=== PATIENT | male | born 1975 | race Two or more races ===

== ENCOUNTER 2022-06-19 16:38 | Inpatient (IN) | payer MEDICAID, OTHER ==
[~2022-06-19] VITALS: Ht 165.1 cm; Wt 123.4 kg
[2022-06-19 18:34] LABS: Basophils # (auto) 0.1 10 ^3/uL (0-0.2); Basophils % (auto) 1.2 % (0.0-2.0); Eosinophils # (auto) 0 10 ^3/uL (0-0.8); Eosinophils % (auto) 0.2 % (0.0-7.0); Hematocrit 43.9 % (41.0-53.0); Hemoglobin 14.9 g/dL (13.5-17.5); Lymphocytes # (auto) 2.4 10 ^3/uL (0.4-5.4); Lymphocytes % (auto) 18.6 % (10.0-50.0); Mean Corpuscular Hemoglobin 31.3 pg (28.0-32.0); Mean Corpuscular Volume 91.9 fL (80.0-100.0); Monocytes % (auto) 7.8 % (0.0-12.0); Neutrophils # (auto) 9.2 10 ^3/uL (1.6-8.6); Neutrophils % (auto) 72.2 % (37.0-80.0); Nucleated Red Blood Cells % 0.1 %; Red Blood Cells 4.77 10^6/uL (4.5-5.90); Red Cell Distribution Width 12.9 % (11.8-14.3); White Blood Cell 12.7 10^3/uL (4.4-10.8)
[2022-06-19 18:51] LABS: INR 1.05 (0.9-1.15); Partial Thromboplastin Time 27.3 sec (24.6-33.4)
[2022-06-19 18:54] LABS: Albumin 4.1 g/dL (3.4-5.0); Anion Gap 11 (5-15); Blood Urea Nitrogen 11 mg/dL (7-18); Calcium 9.9 mg/dL (8.5-10.1); Carbon Dioxide 27 mmol/L (21-32); Chloride 102 mmol/L (98-107); Glucose 156 mg/dL (74-106); Magnesium 2.1 mg/dL (1.6-2.6); Potassium 3.8 mmol/L (3.5-5.1); Sodium 140 mmol/L (136-145)
[2022-06-19 18:56] LABS: Alanine Aminotransferase 37 U/L (16-61); Aspartate Aminotransferase 45 U/L (15-37); BUN/Creatinine Ratio 11.5; Blood Alcohol < 3.0 mg/dL (0-5); GFR African American 108 mL/min; GFR Non-African American 90 mL/min
[2022-06-19 18:57] LABS: Alkaline Phosphatase 103 U/L (45-117); Total Protein 8.3 g/dL (6.4-8.2)
[2022-06-19] MEDS ORDERED: LORazepam 2MG/ML-1ML VIAL IM ONE (19:45)
[2022-06-19 21:52] LABS: Urine Bacteria NONE SEEN /hpf (None Seen); Urine Blood Negative /uL (Negative); Urine Specific Gravity 1.025 (1.001-1.035); Urine WBC <1 /hpf (0 - 3)
[2022-06-19 22:12] LABS: Amphetamine Screen, Urine NEGATIVE (NEGATIVE); Barbiturate Scree,Urine NEGATIVE (NEGATIVE); Benzodiazephine Screen, Urine NEGATIVE (NEGATIVE); Cannabinoid Screen, Urine NEGATIVE (NEGATIVE); Cocaine Screen, Urine NEGATIVE (NEGATIVE); Opiate Scree,Urine NEGATIVE (NEGATIVE); Phencyclidine Screen, Urine NEGATIVE (NEGATIVE)
[2022-06-19] MEDS ORDERED: LORazepam 2MG/ML-1ML VIAL ONE (23:15)
[2022-06-20] MEDS ORDERED: LORazepam 2MG/ML-1ML VIAL IV ONE (01:00)
[2022-06-20] MEDS ORDERED: ONDANSETRON HCL 4 MG/2 ML VIAL IV PRN (07:00)
[2022-06-20] MEDS ORDERED: MORPHINE SULFATE INJ 2 MG/ml SYRG IV PRN (07:00)
[2022-06-20] MEDS ORDERED: NITROGLYCERIN 0.4 MG SL TAB SL PRN (07:00)
[2022-06-20] MEDS ORDERED: IBUPROFEN 800 MG TAB PO ONE (08:30)
[2022-06-20] MEDS: LISINOPRIL 10 MG TAB PO SCH (10:27)
[2022-06-20] MEDS: PANTOPRAZOLE 40 MG TAB PO SCH (10:27)
[2022-06-20] MEDS ORDERED: FOLIC ACID 1 MG, MULTIPLE VITAMIN 10 ML, MAGNESIUM SULF SDV 50% 8 MEQ, THIAMINE INJ 100... INJ SCH ×5 (12:00)
[2022-06-20] MEDS ORDERED: LORazepam 2MG/ML-1ML VIAL IV SCH (14:00)
[2022-06-20] MEDS ORDERED: LORazepam 0.5 MG TAB PO PRN (14:00)
[2022-06-20] MEDS: FOLIC ACID 1 MG, MULTIPLE VITAMIN 10 ML, MAGNESIUM SULF SDV 50% 8 MEQ, THIAMINE INJ 100... INJ SCH ×5 (15:21)
[2022-06-20] MEDS ORDERED: LORazepam 2MG/ML-1ML VIAL IV PRN (17:15)
[2022-06-20 22:00] VITALS: BP 156/84
[2022-06-21] MEDS: TEMAZEPAM 15 MG CAP PO PRN (03:09)
[2022-06-21 05:00] VITALS: BP 184/106
[2022-06-21 06:11] LABS: Basophils # (auto) 0.1 10 ^3/uL (0-0.2); Basophils % (auto) 1.1 % (0.0-2.0); Eosinophils # (auto) 0.2 10 ^3/uL (0-0.8); Eosinophils % (auto) 2.5 % (0.0-7.0); Hematocrit 38.1 % (41.0-53.0); Hemoglobin 13.3 g/dL (13.5-17.5); Lymphocytes # (auto) 2.5 10 ^3/uL (0.4-5.4); Lymphocytes % (auto) 28.5 % (10.0-50.0); Mean Corpuscular Hemoglobin 32.1 pg (28.0-32.0); Mean Corpuscular Hgb Conc. 34.9 g/dL (32.0-36.0); Mean Corpuscular Volume 91.7 fL (80.0-100.0); Monocytes # (auto) 0.4 10 ^3/uL (0-1.3); Monocytes % (auto) 4.7 % (0.0-12.0); Neutrophils # (auto) 5.5 10 ^3/uL (1.6-8.6); Neutrophils % (auto) 63.2 % (37.0-80.0); Nucleated Red Blood Cells % 0.1 %; Red Blood Cells 4.15 10^6/uL (4.5-5.90); Red Cell Distribution Width 12.4 % (11.8-14.3); White Blood Cell 8.7 10^3/uL (4.4-10.8)
[2022-06-21 06:27] LABS: Albumin 3.3 g/dL (3.4-5.0); Calcium 8.7 mg/dL (8.5-10.1); Potassium 3.5 mmol/L (3.5-5.1)
[2022-06-21 06:35] LABS: Bilirubin, Total 0.9 mg/dL (0.2-1.0)
[2022-06-21 09:10] VITALS: BP 159/93
[2022-06-21 09:11] VITALS: BP 159/93
[2022-06-21 12:45] VITALS: BP 153/89
[2022-06-21 17:00] VITALS: BP 159/92
[2022-06-21] MEDS: LISINOPRIL 10 MG TAB PO SCH (18:25)
[2022-06-21] MEDS: PANTOPRAZOLE 40 MG TAB PO SCH (18:25)
[2022-06-21] MEDS: FOLIC ACID 1 MG, MULTIPLE VITAMIN 10 ML, MAGNESIUM SULF SDV 50% 8 MEQ, THIAMINE INJ 100... INJ SCH ×5 (18:26)
[2022-06-21] MEDS: chlordiazePOXIDE HCL 25 MG CAP PO PRN (18:28)
[2022-06-21] MEDS: KETOROLAC TROMETH 30 MG/ML 1ML VIAL IV PRN (18:28)
[2022-06-21 22:00] VITALS: BP 142/74
[2022-06-22 05:00] VITALS: BP 153/93
[2022-06-22 05:18] LABS: Basophils # (auto) 0.1 10 ^3/uL (0-0.2); Basophils % (auto) 1.3 % (0.0-2.0); Eosinophils # (auto) 0.3 10 ^3/uL (0-0.8); Eosinophils % (auto) 3.3 % (0.0-7.0); Hematocrit 36.5 % (41.0-53.0); Hemoglobin 12.9 g/dL (13.5-17.5); Lymphocytes # (auto) 2.5 10 ^3/uL (0.4-5.4); Lymphocytes % (auto) 28.8 % (10.0-50.0); Mean Corpuscular Hemoglobin 32.3 pg (28.0-32.0); Mean Corpuscular Hgb Conc. 35.4 g/dL (32.0-36.0); Mean Corpuscular Volume 91.2 fL (80.0-100.0); Monocytes # (auto) 0.4 10 ^3/uL (0-1.3); Monocytes % (auto) 4.4 % (0.0-12.0); Neutrophils # (auto) 5.3 10 ^3/uL (1.6-8.6); Neutrophils % (auto) 62.2 % (37.0-80.0); Nucleated Red Blood Cells % 0.1 %; Red Cell Distribution Width 12.6 % (11.8-14.3); White Blood Cell 8.5 10^3/uL (4.4-10.8)
[2022-06-22 05:30] LABS: Albumin 3.2 g/dL (3.4-5.0); Calcium 8.3 mg/dL (8.5-10.1); Potassium 3.8 mmol/L (3.5-5.1)
[2022-06-22 05:34] LABS: BUN/Creatinine Ratio 13.6; Bilirubin, Total 0.8 mg/dL (0.2-1.0); Total Protein 6.8 g/dL (6.4-8.2)
[2022-06-22 08:50] VITALS: BP 145/88
[2022-06-22] MEDS: KETOROLAC TROMETH 30 MG/ML 1ML VIAL IV PRN ×2 (08:57→21:40)
[2022-06-22] MEDS: chlordiazePOXIDE HCL 25 MG CAP PO PRN (09:13)
[2022-06-22] MEDS: PANTOPRAZOLE 40 MG TAB PO SCH (09:13)
[2022-06-22] MEDS: LISINOPRIL 10 MG TAB PO SCH (09:14)
[2022-06-22] MEDS ORDERED: KETOROLAC TROMETH 30 MG/ML 1ML VIAL IV PRN (10:00)
[2022-06-22] MEDS: FOLIC ACID 1 MG, MULTIPLE VITAMIN 10 ML, MAGNESIUM SULF SDV 50% 8 MEQ, THIAMINE INJ 100... INJ SCH ×5 (12:00)
[2022-06-22 13:12] VITALS: BP 145/88
[2022-06-22 17:00] VITALS: BP 138/81
[2022-06-22] MEDS: TEMAZEPAM 15 MG CAP PO PRN (21:40)
[2022-06-22 22:00] VITALS: BP 136/87
[2022-06-23 04:56] VITALS: BP 156/96
[2022-06-23 07:06] LABS: Basophils # (auto) 0.1 10 ^3/uL (0-0.2); Basophils % (auto) 0.7 % (0.0-2.0); Eosinophils # (auto) 0.4 10 ^3/uL (0-0.8); Eosinophils % (auto) 3.4 % (0.0-7.0); Hematocrit 39.6 % (41.0-53.0); Hemoglobin 13.7 g/dL (13.5-17.5); Lymphocytes # (auto) 2.6 10 ^3/uL (0.4-5.4); Lymphocytes % (auto) 23.7 % (10.0-50.0); Mean Corpuscular Hemoglobin 31.2 pg (28.0-32.0); Mean Corpuscular Hgb Conc. 34.5 g/dL (32.0-36.0); Mean Corpuscular Volume 90.5 fL (80.0-100.0); Monocytes # (auto) 0.6 10 ^3/uL (0-1.3); Monocytes % (auto) 5.1 % (0.0-12.0); Neutrophils # (auto) 7.2 10 ^3/uL (1.6-8.6); Neutrophils % (auto) 67.1 % (37.0-80.0); Nucleated Red Blood Cells % 0.1 %; Red Blood Cells 4.38 10^6/uL (4.5-5.90); Red Cell Distribution Width 12.7 % (11.8-14.3); White Blood Cell 10.8 10^3/uL (4.4-10.8)
[2022-06-23 07:24] LABS: Albumin 3.3 g/dL (3.4-5.0); Calcium 8.8 mg/dL (8.5-10.1); Potassium 4.2 mmol/L (3.5-5.1)
[2022-06-23 07:29] LABS: BUN/Creatinine Ratio 15.7; Total Protein 6.8 g/dL (6.4-8.2)
[2022-06-23 09:00] VITALS: BP 137/90
[2022-06-23] MEDS: LISINOPRIL 10 MG TAB PO SCH (10:41)
[2022-06-23] MEDS: PANTOPRAZOLE 40 MG TAB PO SCH (10:41)
[2022-06-23] MEDS: KETOROLAC TROMETH 30 MG/ML 1ML VIAL IV PRN ×2 (10:42→20:54)
[2022-06-23] MEDS: FOLIC ACID 1 MG, MULTIPLE VITAMIN 10 ML, MAGNESIUM SULF SDV 50% 8 MEQ, THIAMINE INJ 100... INJ SCH ×5 (12:00)
[2022-06-23 13:00] VITALS: BP 152/90
[2022-06-23] MEDS: TEMAZEPAM 15 MG CAP PO PRN (20:53)
[2022-06-23 21:53] VITALS: BP 135/86
[2022-06-24 05:10] VITALS: BP 143/86
[2022-06-24 07:00] LABS: Basophils # (auto) 0.1 10 ^3/uL (0-0.2); Basophils % (auto) 0.7 % (0.0-2.0); Eosinophils # (auto) 0.3 10 ^3/uL (0-0.8); Eosinophils % (auto) 2.8 % (0.0-7.0); Hematocrit 40.9 % (41.0-53.0); Hemoglobin 14.1 g/dL (13.5-17.5); Lymphocytes # (auto) 2.7 10 ^3/uL (0.4-5.4); Lymphocytes % (auto) 22.2 % (10.0-50.0); Mean Corpuscular Hemoglobin 31.3 pg (28.0-32.0); Mean Corpuscular Hgb Conc. 34.5 g/dL (32.0-36.0); Mean Corpuscular Volume 90.6 fL (80.0-100.0); Monocytes # (auto) 0.6 10 ^3/uL (0-1.3); Monocytes % (auto) 4.9 % (0.0-12.0); Neutrophils # (auto) 8.3 10 ^3/uL (1.6-8.6); Neutrophils % (auto) 69.4 % (37.0-80.0); Nucleated Red Blood Cells % 0.1 %; Red Blood Cells 4.51 10^6/uL (4.5-5.90); Red Cell Distribution Width 13.1 % (11.8-14.3)
[2022-06-24 07:18] LABS: Albumin 3.5 g/dL (3.4-5.0); BUN/Creatinine Ratio 18.3; Calcium 8.9 mg/dL (8.5-10.1); Potassium 4.3 mmol/L (3.5-5.1)
[2022-06-24 07:22] LABS: Bilirubin, Total 0.9 mg/dL (0.2-1.0)
[2022-06-24 09:00] VITALS: BP 150/96
[2022-06-24] MEDS: PANTOPRAZOLE 40 MG TAB PO SCH (09:52)
[2022-06-24] MEDS: LISINOPRIL 10 MG TAB PO SCH (09:53)
[2022-06-24] MEDS: chlordiazePOXIDE HCL 25 MG CAP PO PRN (09:53)
[2022-06-24 13:00] VITALS: BP 133/73
[2022-06-24] MEDS: FOLIC ACID 1 MG, MULTIPLE VITAMIN 10 ML, MAGNESIUM SULF SDV 50% 8 MEQ, THIAMINE INJ 100... INJ SCH ×5 (13:40)
[2022-06-24 17:00] VITALS: BP 132/85
[2022-06-24 22:00] VITALS: BP 136/92
[2022-06-24] MEDS: TEMAZEPAM 15 MG CAP PO PRN (22:31)
[2022-06-24] MEDS: KETOROLAC TROMETH 30 MG/ML 1ML VIAL IV PRN (22:32)
[2022-06-25 05:00] VITALS: BP 130/87
[2022-06-25 06:23] LABS: Basophils # (auto) 0.1 10 ^3/uL (0-0.2); Basophils % (auto) 0.7 % (0.0-2.0); Eosinophils # (auto) 0.2 10 ^3/uL (0-0.8); Eosinophils % (auto) 2.5 % (0.0-7.0); Hematocrit 41.7 % (41.0-53.0); Hemoglobin 14.3 g/dL (13.5-17.5); Lymphocytes # (auto) 2.4 10 ^3/uL (0.4-5.4); Lymphocytes % (auto) 24.9 % (10.0-50.0); Mean Corpuscular Hemoglobin 31.5 pg (28.0-32.0); Mean Corpuscular Hgb Conc. 34.3 g/dL (32.0-36.0); Mean Corpuscular Volume 91.8 fL (80.0-100.0); Monocytes # (auto) 0.6 10 ^3/uL (0-1.3); Monocytes % (auto) 6.4 % (0.0-12.0); Neutrophils # (auto) 6.4 10 ^3/uL (1.6-8.6); Neutrophils % (auto) 65.5 % (37.0-80.0); Red Blood Cells 4.54 10^6/uL (4.5-5.90); Red Cell Distribution Width 12.8 % (11.8-14.3); White Blood Cell 9.8 10^3/uL (4.4-10.8)
[2022-06-25 09:00] VITALS: BP 148/94
[2022-06-25] MEDS: KETOROLAC TROMETH 30 MG/ML 1ML VIAL IV PRN (09:04)
[2022-06-25 09:32] LABS: Chloride 109 mmol/L (98-107); Potassium 4.4 mmol/L (3.5-5.1); Sodium 141 mmol/L (136-145)
[2022-06-25 09:37] LABS: Alanine Aminotransferase 32 U/L (16-61); Alkaline Phosphatase 78 U/L (45-117); Anion Gap 10 (5-15); Aspartate Aminotransferase 15 U/L (15-37); BUN/Creatinine Ratio 15.4; Bilirubin, Total 0.9 mg/dL (0.2-1.0); Blood Urea Nitrogen 14 mg/dL (7-18); Calcium 8.8 mg/dL (8.5-10.1); Carbon Dioxide 22 mmol/L (21-32); GFR African American 115 mL/min; GFR Non-African American 95 mL/min; Glucose 97 mg/dL (74-106); Total Protein 7.3 g/dL (6.4-8.2)
[2022-06-25 09:38] LABS: Albumin 3.7 g/dL (3.4-5.0)
[2022-06-25] MEDS: LISINOPRIL 10 MG TAB PO SCH (10:54)
[2022-06-25] MEDS: PANTOPRAZOLE 40 MG TAB PO SCH (10:55)
[2022-06-25 13:00] VITALS: BP 120/72
[2022-06-25 13:17] VITALS: BP 120/72
== END 2022-06-25 16:00 | disposition home or self-care (01) | DRG 775 ==
LOC: ER 16:38 → TELE 06-20 06:55 → TELE-WESTW 06-20 16:37
PROVIDERS: ADMIT Nurse Practitioner; ATTEND Internal Medicine Pulmonary Disease
DX: F10.231 Alcohol dependence with withdrawal delirium (principal); L40.50 Arthropathic psoriasis, unspecified; E88.81 Metabolic syndrome and other insulin resistance; F41.9 Anxiety disorder, unspecified; M06.9 Rheumatoid arthritis, unspecified; I10 Essential (primary) hypertension; R74.01 Elevation of levels of liver transaminase levels; E66.9 Obesity, unspecified; E78.5 Hyperlipidemia, unspecified; Z20.822 Contact with and (suspected) exposure to COVID-19; Z89.111 Acquired absence of right hand; Z68.41 Body mass index [BMI] 40.0-44.9, adult
CPT/HCPCS: 36415; 71045; 80053; 80061; 80307; 80320; 81001; 82550; 83036; 83735; 83880; 84443; 84484; 85025; 85610; 85730; 87426; 96365; 96372; 96375; G0378; J1885

== ENCOUNTER 2024-08-23 17:18 | Emergency (ER) | payer MEDICAID, OTHER ==
[~2024-08-23] VITALS: Ht 177.8 cm; Wt 116.0 kg
[2024-08-23 17:31] VITALS: BP 148/97; PULSE 115; RESP 20; TEMP 97.7; O2SAT 97
[2024-08-23] MEDS: KETOROLAC TROMETH 60MG/2ML VIAL IM ONE (17:47)
[2024-08-23] MEDS: HYDROcodone-ACET 10/325MG TAB PO ONE (18:11)
--- NOTE | 2024-08-23 18:34 | ED.PDOC ---
History of Present Illness HPI Comments 49 y/o M, with a Hx of rheumatoid arthritis, presents with c/o generalized body pain, today. Patient is homeless and a poor historian and endorses on developing symptoms after running out of his Humira and Methotrexate, recently, in addition to losing his insurance. He denies having any weakness, numbness, tingling, fever, chills, or other associated symptoms or modifiers at this time. Vital signs were stable. Chief Complaint: Body Pain Time Seen by MD: 17:20 Primary Care Provider: NONE Reviewed Notes: Nurses Notes Allergies: Coded Allergies: No Known Drug Allergy (Verified Allergy, Unknown, 06/20/22) Home Meds No Active Prescriptions or Reported Meds Information Source: Patient Mode of Arrival: Ambulatory Severity: Moderate Timing: Weeks Duration: Since onset Prehospital treatment: None Medication Refill: Ran out of Medication Past Medical History PAST MEDICAL HISTORY: Arthritis Past Medical History (Other): Rheumatoid arthritis Surgical History: Denies all surgeries Family History Family History: Reviewed,noncontributory to illness Social History Smoker: Non-Smoker Alcohol: Heavy Drugs: Marijuana Lives In: Homeless Constitutional: denies: chills, diaphoresis, fatigue, fever, malaise, sweats, weakness, others EENTM: denies: blurred vision, double vision, ear bleeding, ear discharge, ear drainage, ear pain, ear ringing, eye pain, eye redness, hearing loss, mouth pain, mouth swelling, nasal discharge, nose bleeding, nose congestion, nose pain, photophobia, tearing, throat pain, throat swelling, voice changes, others Respiratory: denies: cough, hemoptysis, orthopnea, SOB at rest, shortness of breath, SOB with excertion, stridor, wheezing, others Cardiovascular: denies: chest pain, dizzy spells, diaphoresis, Dyspnea on exertion, edema, irregular heart beat, left arm pain, lightheadedness, palpitations, PND, syncope, others Gastrointestinal: denies: abdomen distended, abdominal pain, blood streaked bowels, constipated, diarrhea, dysphagia, difficulty swallowing, hematemesis, melena, nausea, poor appetite, poor fluid intake, rectal bleeding, rectal pain, vomiting, others Genitourinary: denies: burning, dysuria, flank pain, frequency, hematuria, incontinence, penile discharge, penile sore, pain, testicle pain, testicle swelling, urgency, others Neurological: denies: dizziness, fainting, headache, left sided numbness, left sided weakness, numbness, paresthesia, pre-existing deficit, right sided numbness, right sided weakness, seizure, speech problems, tingling, tremors, weakness, others Musculoskeletal: reports: others (generalized bodypain); denies: back pain, gout, joint pain, joint swelling, muscle pain, muscle stiffness, neck pain Integumetry: denies: bruises, change in color, change in hair/nails, dryness, laceration, lesions, lumps, rash, wounds, others Allergic/Immunocompromised: denies: Difficulty Healing, Frequent Infections, Hives, Itching, others Hematologic/Lymphatic: denies: anemia, blood clots, easy bleeding, easy bruising, swollen glands, others Endocrine: denies: excessive hunger, excessive sweating, excessive thirst, excessive urination, flushing, intolerance to cold, intolerance to heat, unexplained weight gain, unexplained weight loss, others Psychiatric: denies: anxiety, bipolar disorder, depression, hopeless, panic disorder, schizophrenia, sleepless, suicidal, others All Other Systems: Reviewed and Negative (negative unless otherwise stated above or in HPI) Physical Exam General Appearance: Moderate Distress (Due to global body pain concerns.), Obese HEENT: Normal ENT Inspection, Pharynx Normal, TMs Normal Neck: Full Range of Motion, Non-Tender, Normal, Normal Inspection Respiratory: Chest Non-Tender, Lungs Clear, No Accessory Muscle Use, No Respiratory Distress, Normal Breath Sounds Cardiovascular: No Edema, No JVD, No Murmur, No Gallop, Normal Peripheral Pulses, Regular Rate/Rhythm Breast Exam: Deferred Gastrointestinal: No Organomegaly, Non Tender, No Pulsatile Mass, Normal Bowel Sounds, Soft Genitalia: Deferred Pelvic: Deferred Rectal: Deferred Extremities: Other (Patient complains of global body pain throughout the muscles and joints. No signs of trauma, but the patient displays reduced range of motion throughout.) Neurologic: Abnormal Gait (Due to bilateral knee pain concerns.), Alert, Normal Affect, Normal Mood, No Sensory Deficits Cerebellar Function: NOT DONE Reflexes: NOT DONE Skin: Dry, Normal Color, Warm Lymphatic: No Adenopathy Was a procedure done? Was a procedure done?: No Differential Dx Considerations may include: rheumatoid arthritis, chronic pain X-Ray, Labs, Meds, VS Vital Signs Date Time Temp Pulse Resp B/P (MAP) Pulse Ox O2 Delivery O2 Flow Rate FiO2 08/23/24 17:31 115 20 08/23/24 17:31 97.7 115 20 148/97 (114) 97 08/23/24 17:31 97.7 115 20 148/97 (114) 97 97.7 Current Medications Medications (Trade) Dose Ordered Sig/Sophie Route Start Time Stop Time Status Last Admin Ketorolac Tromethamine (Toradol Injection) 30 mg ONCE ONCE IM 08/23/24 17:30 08/23/24 17:31 DC 08/23/24 17:47 Acetaminophen/ Hydrocodone Bitart ([place] 10/325MG Tab) 1 tab ONCE ONCE PO 08/23/24 18:00 08/23/24 18:01 DC 08/23/24 18:11 X-Ray, Labs, Meds, VS Comment Advised patient that we do not prescribe Humira in the ED and that he would need to establish a primary care provider for long-term management. Advised the patient to return to the facility tomorrow for a social service consult to help him in establishing and securing a primary care provider for medication management. Time of 1ST Reevaluation: 22:37 Reevaluation 1ST: Improved Consultation: PCP Patient Education/Counseling: Diagnosis, Treatment Family Education/Counseling: Diagnosis, Treatment, No Family Present Departure 1 Departure Time of Disposition: 22:37 Impression: Primary Impression: Rheumatoid arthritis Disposition: 01 HOME / SELF CARE / HOMELESS Condition: Stable Additional Instructions: Advised patient utilize pain medication as needed. Patient has been advised to return to this facility tomorrow for social service consult to help establish a primary care provider to manage his medication concerns. e-Prescriptions Hydrocodone-Acetaminophen (Hydrocodone Bitartrate/AC 10-325 mg) 1 Tab Tab 1 TAB PO Q8HP PRN, #20 TAB Prov: THOMAS GALICIA PAC 08/23/24 Ibuprofen Micronized (Ibuprofen) 800 Mg Tab 800 MG PO Q8HP PRN, #30 TAB Prov: THOMAS GALICIA PAC 08/23/24 Discharged With: Self, Friend Critical Care Note Critical Care Time?: No Stability Stability form required: No Heart Score Heart Score: Heart Score Response (Comments) Value History N/A 0 EKG N/A 0 Age N/A 0 Risk Factors N/A 0 Troponin N/A 0 Total 0 I personally scribed for THOMAS GALICIA PAC ([email or web address]) on 08/23/24 at 18:34. Electronically submitted by Darren Rincon ([email or web address]). THOMAS GALICIA PAC Aug 23, 2024 18:34
[2024-08-23] MEDS ORDERED: HYDR-4798 PO (22:38)
[2024-08-23] MEDS ORDERED: IBUP-1455 PO (22:38)
== END 2024-08-23 23:08 | disposition home or self-care (01) ==
LOC: ER 17:18
DX: M06.9 Rheumatoid arthritis, unspecified (principal); Z59.00 Homelessness unspecified
CPT/HCPCS: 96372; 99283; J1885